=== PATIENT | female | born 1980 | race Caucasian/White ===

== ENCOUNTER 2017-05-15 13:17 | Emergency (ER) | payer OTHER ==
[~2017-05-15] VITALS: Ht 154.9 cm; Wt 51.0 kg
[2017-05-15 13:23] VITALS: Ht 154.9 cm; Wt 51.0 kg
[2017-05-15] MEDS ORDERED: SOD CHLORIDE 0.9% 1,000 ML IV STA (14:59)
[2017-05-15] MEDS ORDERED: HYDROCODONE/APAP (5/325) TAB PO ONE (15:00)
[2017-05-15 15:32] LABS: ADD SCAN DIFF NO
[2017-05-15 15:34] LABS: BASOPHILS % 0.5 % (0.0-2.0); EOSINOPHILS % 0.3 % (0.0-7.0); HEMOGLOBIN 10.7 g/dl (12.0-16.0); LYMPHOCYTES # 1.7 10^3/ul (0.8-2.9); LYMPHOCYTES % 27.3 % (15.0-51.0); MEAN CORPUSCULAR HEMOGLOBIN 30.1 pg (29.0-33.0); MEAN CORPUSCULAR HGB CONC 32.4 g/dl (32.0-37.0); MEAN CORPUSCULAR VOLUME 92.7 fl (82.0-101.0); MEAN PLATELET VOLUME 9.4 fl (7.4-10.4); MONOCYTE # 0.4 10^3/ul (0.3-0.9); MONOCYTES % 6.4 % (0.0-11.0); NEUTROPHIL # 3.9 10^3/ul (1.6-7.5); NEUTROPHILS % 65.2 % (39.0-77.0); PLATELET COUNT 349 10^3/UL (140-415); RED BLOOD COUNT 3.56 10^6/ul (4.20-5.40); WHITE BLOOD COUNT 6.1 10^3/ul (4.8-10.8)
[2017-05-15 16:00] LABS: ALBUMIN 5.2 g/dl (3.3-4.9); ALBUMIN/GLOBULIN RATIO 8.66; BILIRUBIN,INDIRECT 0.3 mg/dl (0-1.1); BILIRUBIN,TOTAL 0.3 mg/dl (0.2-1.3); CALCIUM 9.8 mg/dl (8.4-10.2); CREATININE 0.55 mg/dl (0.44-1.00); POTASSIUM 3.9 mmol/L (3.5-5.1); TOTAL PROTEIN 5.8 g/dl (6.1-8.1)
[2017-05-15] MEDS ORDERED: IODIXANOL LOCM 100 ML BTL ONE (16:22)
[2017-05-15] MEDS ORDERED: SOD CHLORIDE 0.9% 100 ML ONE (16:22)
[2017-05-15 16:26] LABS: ADD UMIC NO; UR BILIRUBIN (Dip) NEGATIVE (NEGATIVE); UR BLOOD (Dip) NEGATIVE (NEGATIVE); UR CLARITY SLIGHTLY CLOUDY (CLEAR); UR COLOR YELLOW (YELLOW); UR GLUCOSE (Dip) NEGATIVE (NEGATIVE); UR KETONES (Dip) TRACE (NEGATIVE); UR LEUKOCYTE ESTERASE (Dip) NEGATIVE (NEGATIVE); UR NITRITE (Dip) NEGATIVE (NEGATIVE); UR TOTAL PROTEIN (Dip) NEGATIVE (NEGATIVE); UR UROBILINOGEN (Dip) 4.0 E.U./dL (0.1-1.0)
--- NOTE | 2017-05-15 17:04 | ERD ---
ER Documentation Chief Complaint Date/Time DATE: 05/15/17 TIME: 17:03 Chief Complaint Pt with AP , nausea and fever X 2 days. HPI This 36-year-old female presents to the emergency department today complaining of abdominal pain for the past 5 days. Patient states that she has a history of umbilical hernia for the past 15 years. States that sometimes it gets bad and then goes away however it has been worse for the past 5 days. States it feels different. Denies any constipation, dysuria, vomiting or diarrhea. Denies any fevers or chills. ROS All systems reviewed and are negative except as per history of present illness. Medications Home Meds Active Scripts Acetaminophen* (Tylophen*) 500 Mg Capsule, 1 CAP PO Q6H Y for PAIN AND OR ELEVATED TEMP, #30 CAP Prov:SHELLEY HALL PA-C 05/15/17 Hydrocodone/Acetaminophen ([place] 5-325 Tablet) 1 Each Tablet, 1 TAB PO Q6H Y for PAIN, #10 TAB Prov:SHELLEY HALL PA-C 05/15/17 Cephalexin* (Keflex*) 500 Mg Capsule, 500 MG PO QID for 10 Days, CAP Prov:SHELLEY HALL PA-C 05/15/17 Allergies Allergies: Coded Allergies: No Known Allergy (Unverified , 05/15/17) PMhx/Soc Medical and Surgical Hx: pt denies Medical Hx, pt denies Surgical Hx Hx Alcohol Use: No Hx Substance Use: No Hx Tobacco Use: No Smoking Status: Never smoker Physical Exam Vitals Vital Signs Date Time Temp Pulse Resp B/P Pulse Ox O2 Delivery O2 Flow Rate FiO2 05/15/17 13:23 99.1 77 18 110/72 100 Physical Exam Const: No acute distress Head: Atraumatic Eyes: Normal Conjunctiva ENT: Normal External Ears, Nose and Mouth. Neck: Full range of motion..~ No meningismus. Resp: Clear to auscultation bilaterally Cardio: Regular rate and rhythm, no murmurs Abd: Soft, redness around periumbilical region with 5-7 cm area of firmness. non distended. Normal bowel sounds Ext: No cyanosis, or edema Neur: Awake and alert Psych: Normal Mood and Affect Result Diagram: 05/15/17 1516 05/15/17 1516 Results 24 hrs Laboratory Tests Test 05/15/17 15:11 05/15/17 15:16 Urine Color YELLOW Urine Clarity SLIGHTLY CLOUDY Urine pH 7.0 Urine Specific [place] 1.015 Urine Ketones TRACE Urine Nitrite NEGATIVE Urine Bilirubin NEGATIVE Urine Urobilinogen 4.0 E.U./dL Urine Leukocyte Esterase NEGATIVE Urine Hemoglobin NEGATIVE Urine Glucose NEGATIVE% Urine Total Protein NEGATIVE White Blood Count 6.110^3/ul Red Blood Count 3.5610^6/ul Hemoglobin 10.7g/dl Hematocrit 33.0% Mean Corpuscular Volume 92.7fl Mean Corpuscular Hemoglobin 30.1pg Mean Corpuscular Hemoglobin Concent 32.4g/dl Red Cell Distribution Width 13.0% Platelet Count 87161^3/UL Mean Platelet Volume 9.4fl Neutrophils % 65.2% Lymphocytes % 27.3% Monocytes % 6.4% Eosinophils % 0.3% Basophils % 0.5% Nucleated Red Blood Cells % 0.0/100WBC Neutrophils # 3.910^3/ul Lymphocytes # 1.710^3/ul Monocytes # 0.410^3/ul Eosinophils # 0.010^3/ul Basophils # 0.010^3/ul Nucleated Red Blood Cells # 0.010^3/ul Sodium Level 143mmol/L Potassium Level 3.9mmol/L Chloride Level 103mmol/L Carbon Dioxide Level 27mmol/L Anion Gap 17 Blood Urea Nitrogen 8mg/dl Creatinine 0.55mg/dl Glucose Level 87mg/dl Lactic Acid Level 0.6mmol/L Calcium Level 9.8mg/dl Total Bilirubin 0.3mg/dl Direct Bilirubin 0.00mg/dl Indirect Bilirubin 0.3mg/dl Aspartate Amino Transf (AST/SGOT) 19IU/L Alanine Aminotransferase (ALT/SGPT) 36IU/L Alkaline Phosphatase 47IU/L Total Protein 5.8g/dl Albumin 5.2g/dl Globulin 0.60g/dl Albumin/Globulin Ratio 8.66 Lipase 100U/L Current Medications Medications (Trade) Dose Ordered Sig/Jennie Route PRN Reason Start Time Stop Time Status Last Admin Dose Admin Sodium Chloride (NS) 1,000 ml @ 1,000 mls/hr Q1H STAT IV 05/15/17 14:59 05/15/17 15:58 DC 6/16/17 15:11 Acetaminophen/ Hydrocodone Bitart ([place] (5/325)) 1 tab ONCE ONCE PO 05/15/17 15:00 05/15/17 15:03 DC 05/15/17 15:10 IV Flush 10 ml 10 ml STK-MED ONCE .ROUTE 05/15/17 16:22 05/15/17 16:23 DC Sodium Chloride (NS) 100 ml @ ud STK-MED ONCE .ROUTE 05/15/17 16:22 05/15/17 16:23 DC Iodixanol (Visipaque Locm) 100 ml STK-MED ONCE .ROUTE 05/15/17 16:22 05/15/17 16:23 DC DIAGNOSTIC IMAGING REPORT Patient: SOTO OLMSTEAD : 1980 Age: 36 Sex: F MR #: [id number] DOS: 05/15/17 1459 Ordering MD: SHELLEY HALL PA-C Location: [facility] Room/Bed: PROCEDURE: CT Abdomen and Pelvis with contrast. CLINICAL INDICATION: Abdominal pain. Status post umbilical hernia repair. TECHNIQUE: CT scan of the abdomen and pelvis with contrast was performed on a multi-detector high-resolution CT scanner. The patient was scanned following the uncomplicated intravenous administration of 100 cc of Omnipaque 300. Coronal and sagittal reformatted images were obtained from the axial source images. Images were reviewed on a high-resolution PACS workstation. The total exam CTDI equals 6.26 mGy and the total exam DLP equals 340.63 mGy-cm. One or more of the following dose reduction techniques were used: Automated exposure control. Adjustment of the mA and/or kV according to patient size. Use of iterative reconstruction technique. COMPARISON: None. FINDINGS: CT abdomen: The lung bases are clear. The heart size is normal, without pericardial thickening or effusion. The liver is normal in size and density without focal mass or intrahepatic biliary dilatation. The spleen is normal in size and homogeneous in density. The stomach is partially collapsed, but is grossly unremarkable. The pancreas as visualized is normal. The gallbladder is unremarkable. There is no evidence for biliary dilatation. The adrenal glands are symmetric and normal. The kidneys are symmetrically unremarkable as well. No renal calculus or obstructive uropathy or mass lesion is seen. The aorta is of normal caliber. There is no retroperitoneal lymphadenopathy. The leatha hepatis region is clear. There is a fat containing periumbilical hernia through approximately 2.2 cm defect. There is extensive fatty stranding / patchy enhancement within the hernia sac and adjacent intraperitoneal fat. There is no organized fluid collection in the surgical bed. CT pelvis: The small bowel loops situated within the pelvis are unremarkable. The pelvic organs are normal. The pelvic sidewalls and inguinal regions are clear. There is small amount of free fluid in the pelvis. The sigmoid colon and rectum are unremarkable. No mass, or lymphadenopathy is seen. No acute inflammation is seen. The bladder is normal. The surrounding osseous structures are unremarkable. No osteolytic or osteoblastic lesion is detected. IMPRESSION: 1. Fat containing periumbilical hernia with extensive fatty stranding/patchy enhancement within the hernia sac as well as in the adjacent intraperitoneal fat. This could potentially represent strangulation of the fat/fat necrosis or phlegmon. No drainable fluid collection is identified. 2. Small amount of free fluid in the pelvis. RPTAT: BB .Therese Calixto MD, MD Date Time Electronically viewed and signed by .Therese Calixto MD, MD on 05/15/2017 17:09 .O/ CC: SHELLEY HALL PA-C Procedures/[facility] Laboratory work shows no elevated white blood cell count. She does have anemia with a hemoglobin of 10.7. Platelets are within normal limits. Electrolytes are within normal limits. Glucose within normal limits. Liver functions normal limits. Lipase is within normal limits. UA is negative for infection. She has 4.0 [address] is negative CT abdomen pelvis with IV contrast shows fat-containing periumbilical hernia with extensive fatty stranding, patchy enhancement of the hernia sac as well as in the adjacent intraperitoneal fat. This could potentially represent strain relation of the fat, fat necrosis or phlegmon. There is no drainable fluid collection identified. There is a small amount of free fluid in the pelvis. There is no mass or lymphadenopathy. There is no acute inflammation. I discussed the patient CT findings with Dr. Mendez, who asked me to place a call to the general surgeon on-call, Dr. Huffman. I spoke to Dr. Huffman, who feels that the patient does not require further workup or imaging or admission and feels that there is no evidence of bowel strain related at this time however he has recommended she be placed on Keflex for the evidence of possible phlegmon. I have explained the results to the patient. Patient also has hemoglobin of 10.7 and is anemic however it is not microcytic and I will not give her iron supplements at this time. I have explained this to the patient I explained that she does need to follow-up with her primary care physician for further evaluation and management. Patient understood. She was given [place] here in the emergency department. I will give her a short course for home. She was also given IV fluids. Patient was also given a prescription for Tylenol and Keflex for home. At this time the patient is stable for discharge and outpatient management. Patient should follow up with their PCP in the next 1-2 days. They may return to the emergency department sooner for any persistent or worsening of symptoms. Patient understood and agreed with the plan. Departure Diagnosis: Primary Impression: Periumbilical hernia Additional Impression: Anemia Anemia type: unspecified type Qualified Code: D64.9 - Anemia, unspecified type Condition: SHELLEY Hui PA-C May 15, 2017 17:04
--- NOTE | 2017-05-15 17:09 | RADRPT ---
PROCEDURE: CT Abdomen and Pelvis with contrast. CLINICAL INDICATION: Abdominal pain. Status post umbilical hernia repair. TECHNIQUE: CT scan of the abdomen and pelvis with contrast was performed on a multi-detector high- resolution CT scanner. The patient was scanned following the uncomplicated intravenous administrati on of 100 cc of Omnipaque 300. Coronal and sagittal reformatted images were obtained from the axial source images. Images were reviewed on a high-resolution PACS workstation. The total exam CTDI equa ls 6.26 mGy and the total exam DLP equals 340.63 mGy-cm. One or more of the following dose reduction techniques were used: Automated exposure control. Adjustment of the mA and/or kV according to patient size. Use of iterative reconstruction technique. COMPARISON: None. FINDINGS: CT abdomen: The lung bases are clear. The heart size is normal, without pericardial thickening or effusion. Th e liver is normal in size and density without focal mass or intrahepatic biliary dilatation. The sp payton is normal in size and homogeneous in density. The stomach is partially collapsed, but is gross ly unremarkable. The pancreas as visualized is normal. The gallbladder is unremarkable. There is no evidence for biliary dilatation. The adrenal glands are symmetric and normal. The kidneys are s ymmetrically unremarkable as well. No renal calculus or obstructive uropathy or mass lesion is seen . The aorta is of normal caliber. There is no retroperitoneal lymphadenopathy. The leatha hepatis reg ion is clear. There is a fat containing periumbilical hernia through approximately 2.2 cm defect. T here is extensive fatty stranding / patchy enhancement within the hernia sac and adjacent intraperit nunez fat. There is no organized fluid collection in the surgical bed. CT pelvis: The small bowel loops situated within the pelvis are unremarkable. The pelvic organs are normal. T he pelvic sidewalls and inguinal regions are clear. There is small amount of free fluid in the pelv is. The sigmoid colon and rectum are unremarkable. No mass, or lymphadenopathy is seen. No acute inflammation is seen. The bladder is normal. The surrounding osseous structures are unremarkable. No osteolytic or osteoblastic lesion is detected. IMPRESSION: 1. Fat containing periumbilical hernia with extensive fatty stranding/patchy enhancement within the hernia sac as well as in the adjacent intraperitoneal fat. This could potentially represent chris ulation of the fat/fat necrosis or phlegmon. No drainable fluid collection is identified. 2. Small amount of free fluid in the pelvis. RPTAT: BB .Therese Calixto MD, MD Date Time Electronically viewed and signed by .Therese Calixto MD, MD on 05/15/2017 17:09 .O/
[2017-05-15] MEDS ORDERED: HYDR-906 PO (18:03)
[2017-05-15] MEDS ORDERED: CEPH-443 PO (18:03)
[2017-05-15] MEDS ORDERED: ACET500C5 PO (18:04)
== END 2017-05-15 18:15 | disposition home or self-care (01) ==
LOC: FTE 13:17
DX: K42.9 Umbilical hernia without obstruction or gangrene (principal); D64.9 Anemia, unspecified
CPT/HCPCS: 36415; 74177; 80053; 81003; 83605; 83690; 85025; J7030; Q9967; Z7502; Z7610